=== PATIENT | female | born 1985 | race Caucasian/White ===

== ENCOUNTER 2019-06-03 00:45 | Emergency (ER) | payer MEDICAID ==
[~2019-06-03] VITALS: Ht 154.9 cm; Wt 50.5 kg
[2019-06-03] MEDS ORDERED: IOVERSOL 350 MG/ML 100 ML VIAL ONE (02:18)
[2019-06-03] MEDS ORDERED: SODIUM CHLORIDE 0.9% 100 ML ONE (02:18)
[2019-06-03] MEDS ORDERED: CefTRIAXone SODIUM 1 GM/VIAL IM ONE (03:00)
[2019-06-03] MEDS ORDERED: KETOROLAC TROMETHAMINE 30 MG/ML VIAL IVP ONE (04:15)
[2019-06-03 04:26] VITALS: BP 121/74
== END 2019-06-03 04:59 | disposition home or self-care (01) ==
LOC: EMS 00:45
DX: R10.2 Pelvic and perineal pain (principal); F17.210 Nicotine dependence, cigarettes, uncomplicated; F12.90 Cannabis use, unspecified, uncomplicated; F19.90 Other psychoactive substance use, unspecified, uncomplicated
CPT/HCPCS: 74177; 81025; 96372; 96374; 99284; J0696; J1885; J7050; Q9967